=== PATIENT | male | born 1945 | race Caucasian/White ===

== ENCOUNTER → 2024-05-19 08:18 | Outpatient (REF) | payer MEDICARE, SELFPAY ==
[2024-05-19 12:01] LABS: Urine Albumin Negative (Neg - Trace); Urine Bilirubin Negative (Negative); Urine Character Clear (Clear); Urine Color Yellow; Urine Glucose Negative (Negative); Urine Ketone Negative (Negative); Urine Leukocyte Negative (Negative); Urine Nitrite Negative (Negative); Urine Occult Blood Negative (Negative); Urine Urobilinogen Negative (Neg - 1+)
[2024-05-19 12:02] LABS: % Eosinophils 3.7 % (0-6); % Immature Granulocytes 0.4 % (0-0.5); % Lymphocytes 15.4 % (20.5-51.1); % Monocytes 13.5 % (1.7-9.3); Absolute Basophils 0.1 10^3/uL (0-0.2); Absolute Eosinophils 0.2 10^3/uL (0-0.7); Absolute Lymphocytes 0.8 10^3/uL (1.2-3.4); Absolute Monocytes 0.7 10^3/uL (0.1-0.6); Absolute Neutrophils 3.2 10^3/uL (1.4-6.5); Hematocrit 41.7 % (39.0-52.0); Hemoglobin 13.9 g/dL (13.0-18.0); Mean Corp Hgb Conc. 33.3 g/dL (33.0-37.0); Mean Corpuscular Hgb 31.3 pg (27.0-31.0); Mean Corpuscular Volume 93.9 fL (80.0-94.0); Nucleated Red Blood Cells % 0 % (-); Platelet Count 280 10^3/uL (130-400); Red Blood Cell Count 4.44 10^6/uL (4.70-6.10); Red Cell Dist. Width 13.3 % (11.5-14.5); White Blood Cell Count 4.9 10^3/uL (4.8-10.8)
[2024-05-19 12:32] LABS: ALT (SGPT) 24 U/L (0-50); AST (SGOT) 26 U/L (17-59); Albumin 4.2 g/dl (3.5-5.0); Alkaline Phosphatase 39 U/L (38-126); Blood Urea Nitrogen 18 mg/dl (9-20); Calcium 9.8 mg/dl (8.4-10.2); Carbon Dioxide 33 mmol/L (22-30); Chloride 97 mmol/L (98-107); Glucose 98 mg/dl (70-99); HDL Cholesterol 96 mg/dl; LDL Cholesterol, Calculated 92 mg/dl; Potassium 4.3 mmol/L (3.5-5.1); Sodium 135 mmol/L (135-145); Total Bilirubin 0.8 mg/dl (0.2-1.3); Total Cholesterol 204 mg/dl (50-199); Total Protein 6.3 g/dl (6.3-8.2); Triglyceride 81 mg/dl (10-149); Very Low Density Lipoprotein 16 mg/dl (0-30); eGFR > 60.00
[2024-05-19 12:35] LABS: Erythrocyte Sed Rate 10 mm/hour (0-20)
[2024-05-19 13:36] LABS: C-Reactive Protein < 5.00 mg/L (0.0-10.00)
[2024-05-19 13:55] LABS: Vitamin D, 25-OH*** 33.8 ng/mL (30-80)
[2024-05-19 14:09] LABS: PSA, Total - Diagnostic 0.46 ng/ml (0.0-4.0)
[2024-05-20 18:56] LABS: Hepatitis B Surface Antigen Negative (Negative)
[2024-05-20 19:14] LABS: Hepatitis B Core Ab, Total Negative (Negative); Hepatitis C Antibody Negative (Negative)
[2024-05-21 23:02] LABS: Quantiferon Mitogen minus NIL 8.14 IU/mL; Quantiferon NIL 0.01 IU/mL; Quantiferon TB Gold Plus Negative (Negative)
== END ==
LOC: HWLAB 08:18
PROVIDERS: ATTENDING PHYSICIAN Internal Medicine Rheumatology; FAMILY PHYSICIAN Internal Medicine
DX: E78.5 Hyperlipidemia, unspecified (principal); I10 Essential (primary) hypertension; E55.9 Vitamin D deficiency, unspecified; N40.1 Benign prostatic hyperplasia with lower urinary tract symptoms; R35.0 Frequency of micturition; G56.02 Carpal tunnel syndrome, left upper limb; M06.00 Rheumatoid arthritis without rheumatoid factor, unspecified site; M11.20 Other chondrocalcinosis, unspecified site; Z79.899 Other long term (current) drug therapy; M81.0 Age-related osteoporosis without current pathological fracture
CPT/HCPCS: 36415; 80053; 80061; 81003; 82306; 84153; 85025; 85652; 86140; 86480; 86704; 86803; 87340

== ENCOUNTER → 2024-08-31 10:39 | Outpatient (REF) | payer MEDICARE, SELFPAY ==
[2024-08-31 16:27] LABS: % Basophils 1.1 % (0-2); % Immature Granulocytes 0.2 % (0-0.5); % Lymphocytes 18.8 % (20.5-51.1); % Monocytes 16.5 % (1.7-9.3); % Neutrophils 58.4 % (42.2-75.2); Absolute Basophils 0.1 10^3/uL (0-0.2); Absolute Eosinophils 0.2 10^3/uL (0-0.7); Absolute Lymphocytes 0.8 10^3/uL (1.2-3.4); Absolute Monocytes 0.7 10^3/uL (0.1-0.6); Absolute Neutrophils 2.5 10^3/uL (1.4-6.5); Hematocrit 42.1 % (39.0-52.0); Hemoglobin 14.8 g/dL (13.0-18.0); Mean Corp Hgb Conc. 35.2 g/dL (33.0-37.0); Mean Corpuscular Hgb 32.3 pg (27.0-31.0); Mean Corpuscular Volume 91.9 fL (80.0-94.0); Mean Platelet Volume 9.4 fL (7.4-10.4); Nucleated Red Blood Cells % 0 % (-); Platelet Count 309 10^3/uL (130-400); Red Blood Cell Count 4.58 10^6/uL (4.70-6.10); Red Cell Dist. Width 12.9 % (11.5-14.5); White Blood Cell Count 4.4 10^3/uL (4.8-10.8)
[2024-08-31 16:33] LABS: ALT (SGPT) 21 U/L (0-50); AST (SGOT) 26 U/L (17-59); Albumin 4.4 g/dl (3.5-5.0); Alkaline Phosphatase 39 U/L (38-126); Blood Urea Nitrogen 22 mg/dl (9-20); Calcium 10.1 mg/dl (8.4-10.2); Carbon Dioxide 31 mmol/L (22-30); Chloride 97 mmol/L (98-107); Glucose 105 mg/dl (70-99); Potassium 4.4 mmol/L (3.5-5.1); Sodium 137 mmol/L (135-145); Total Protein 6.4 g/dl (6.3-8.2); eGFR > 60.00
[2024-08-31 16:35] LABS: C-Reactive Protein < 5.00 mg/L (0.0-10.00)
[2024-09-02 08:37] LABS: Rheumatoid Agglutinin Less Than 10 IU (<10 IU)
[2024-09-03 01:05] LABS: CCP Antibody IgG/IgA 4 Units (0-19)
== END ==
LOC: HWLAB 10:39
PROVIDERS: ATTENDING PHYSICIAN Internal Medicine Rheumatology; FAMILY PHYSICIAN Internal Medicine
DX: E78.5 Hyperlipidemia, unspecified (principal); G56.02 Carpal tunnel syndrome, left upper limb; M06.00 Rheumatoid arthritis without rheumatoid factor, unspecified site; M11.20 Other chondrocalcinosis, unspecified site; M15.0 Primary generalized (osteo)arthritis; M17.11 Unilateral primary osteoarthritis, right knee; M25.561 Pain in right knee; M35.3 Polymyalgia rheumatica; M48.02 Spinal stenosis, cervical region; M48.061 Spinal stenosis, lumbar region without neurogenic claudication; M79.10 Myalgia, unspecified site; M81.0 Age-related osteoporosis without current pathological fracture; S14.3XXS Injury of brachial plexus, sequela; Z11.1 Encounter for screening for respiratory tuberculosis; Z11.59 Encounter for screening for other viral diseases; Z13.820 Encounter for screening for osteoporosis; Z79.899 Other long term (current) drug therapy
CPT/HCPCS: 36415; 80053; 85025; 86140; 86200; 86430

== ENCOUNTER → 2025-06-02 08:45 | Outpatient (REF) | payer MEDICARE, SELFPAY ==
[2025-06-02 12:34] LABS: Hematocrit 39.4 % (39.0-52.0); Hemoglobin 13.3 g/dL (13.0-18.0); Mean Corp Hgb Conc. 33.8 g/dL (33.0-37.0); Mean Corpuscular Volume 91.6 fL (80.0-94.0); Nucleated Red Blood Cells % 0 % (-); Platelet Count 228 10^3/uL (130-400); Red Cell Dist. Width 13.1 % (11.5-14.5)
[2025-06-02 12:37] LABS: Urine Character Clear (Clear)
[2025-06-02 12:45] LABS: ALT (SGPT) 18 U/L (0-50); AST (SGOT) 22 U/L (17-59); Albumin 4.0 g/dl (3.5-5.0); Alkaline Phosphatase 32 U/L (38-126); Blood Urea Nitrogen 28 mg/dl (9-20); Calcium 9.2 mg/dl (8.4-10.2); Carbon Dioxide 31 mmol/L (22-30); Chloride 100 mmol/L (98-107); Glucose 92 mg/dl (70-99); HDL Cholesterol 80 mg/dl; LDL Cholesterol, Calculated 93 mg/dl; Potassium 4.3 mmol/L (3.5-5.1); Sodium 133 mmol/L (135-145); Total Protein 6.0 g/dl (6.3-8.2); Very Low Density Lipoprotein 14 mg/dl (0-30); eGFR > 60.00
[2025-06-02 12:49] LABS: C-Reactive Protein < 5.00 mg/L (0.0-10.00)
[2025-06-02 13:06] LABS: Vitamin D, 25-OH*** 36.8 ng/mL (30-80)
[2025-06-02 13:19] LABS: PSA, Total - Diagnostic 1.31 ng/ml (0.0-4.0); TSH 2.07 uIU/ml (0.47-4.68)
== END ==
LOC: HWLAB 08:45
PROVIDERS: ATTENDING PHYSICIAN Internal Medicine Rheumatology; FAMILY PHYSICIAN Internal Medicine
DX: E78.5 Hyperlipidemia, unspecified (principal); I10 Essential (primary) hypertension; F34.1 Dysthymic disorder; K21.9 Gastro-esophageal reflux disease without esophagitis; N40.0 Benign prostatic hyperplasia without lower urinary tract symptoms; E55.9 Vitamin D deficiency, unspecified; M06.00 Rheumatoid arthritis without rheumatoid factor, unspecified site; M11.20 Other chondrocalcinosis, unspecified site; M15.0 Primary generalized (osteo)arthritis; M17.11 Unilateral primary osteoarthritis, right knee; M35.3 Polymyalgia rheumatica; Z79.899 Other long term (current) drug therapy
CPT/HCPCS: 36415; 80053; 80061; 81003; 82306; 84153; 84439; 84443; 85025; 85652; 86140